=== PATIENT | male | born 1950 | race American Indian/Alaskan Native ===

== ENCOUNTER → 2016-10-12 | Outpatient (CLI) | payer MEDICAID ==
[2016-10-12 08:24] LABS: ALT 49 U/L (21-72); AST 37 U/L (17-59); Cholesterol 154 mg/dL (<200); HDL Cholesterol 38 mg/dL (40-60); Triglycerides 241 mg/dL (<150)
== END | disposition home or self-care (01) ==
LOC: LABWHC1 07:15
PROVIDERS: ATTEND Internal Medicine Interventional Cardiology
DX: E78.2 Mixed hyperlipidemia (principal)
CPT/HCPCS: 36415; 80061; 84450; 84460

== ENCOUNTER 2016-10-24 07:30 | Observation (INO) | payer MEDICAID ==
[2016-10-24] MEDS ORDERED: ASPIRIN 81 MG CHEW PO STA (07:39)
[2016-10-24] MEDS ORDERED: NITROGLYCERIN OINT 1 INCH/GM PACKET TOPICAL STA (07:39)
--- NOTE | 2016-10-24 07:43 | ED ---
General Adult HPI - General Stated complaint: chest pain Time Seen by Provider: 10/24/16 07:30 Source: RN notes reviewed - History of Present Illness Initial comments: Patient comes to the emergency department having a heart history. Patient states she's had stents placed in the past per patient comes into the emergency department today stating that he's had left arm pain intermittently. Patient states that ongoing for about 2 weeks. He says he followed up with his medical billing associate and his medical billing associate wants him to have a stress test. Patient states last night the arm pain got worse and he started to sweat so this morning he came to the emergency department. Patient denies any chest pain difficult breathing or shortness of breath. Patient denies any nausea or vomiting. Patient denies any abdominal pain. Patient denies lightheadedness dizziness or near syncopal episode. Patient denies headache patient denies numbness weakness. Patient denies any back pain. Patient denies any dysuria hematuria urinary frequency. Patient denies any fever chills or cough. - Related Data Home Medications Medication Instructions Recorded Confirmed Atorvastatin [Lipitor] 40 mg PO HS 10/06/14 10/24/16 Lisinopril [Zestril] 2.5 mg PO HS 10/06/14 10/24/16 Metoprolol Tartrate [Lopressor] 12.5 mg PO BID 10/06/14 10/24/16 Vit A,C & E/Lutein/Minerals 2 tab PO DAILY 10/06/14 10/24/16 [Ocuvite with Lutein Tablet] Aspirin EC [Ecotrin] 325 mg PO DAILY 10/24/16 10/24/16 Previous Rx's Medication Instructions Recorded Clopidogrel [Plavix] 75 mg PO DAILY tab 10/09/14 Nitroglycerin Sl Tabs [Nitrostat] 0.4 mg SUBLINGUAL Q5M PRN #0 tab 10/09/14 Allergies Allergy/AdvReac Type Severity Reaction Status Date / Time No Known Allergies Allergy Verified 10/24/16 08:56 Review of Systems ROS Statement: Those systems with pertinent positive or pertinent negative responses have been documented in the HPI. ROS Other: All systems not noted in ROS Statement are negative. Past Medical History Past Medical History: Coronary Artery Disease (CAD), Chest Pain / Angina, Hyperlipidemia, Hypertension, Myocardial Infarction ([place]) Additional Past Medical History / Comment(s): 10/06/14 Pt admitted to [facility] ER with chest heaviness starting approximately 1/2 before presentation. Pt was also mildly SOB. Other HX: [place]-lateral wall 2005, generalized DJD, ASHD Last Myocardial Infarction Date:: 2004 History of Any Multi-Drug Resistant Organisms: None Reported Past Surgical History: Heart Catheterization With Stent Additional Past Surgical History / Comment(s): 2004 ccath and stenting poximal LAD and LCX and RCA. colonoscopy Past Anesthesia/Blood Transfusion Reactions: No Reported Reaction Date of Last Stent Placement:: 2004 Past Psychological History: No Psychological Hx Reported Additional Psychological History / Comment(s): Pt resides with his . He is independent. He is still working for the [employer]. Smoking Status: Never smoker Past Alcohol Use History: None Reported Past Drug Use History: None Reported - Past Family History Father Family Medical History: Diabetes Mellitus, Hypertension Mother Family Medical History: Coronary Artery Disease (CAD), Thyroid Disorder General Exam - General Exam Comments Initial Comments: GENERAL: Patient is well-developed and well-nourished. Patient is nontoxic and well- hydrated and is in mild distress. ENT: Neck is soft and supple. No significant lymphadenopathy is noted. Oropharynx is clear. Moist mucous membranes. Neck has full range of motion without eliciting any pain. EYES: The sclera were anicteric and conjunctiva were pink and moist. Extraocular movements were intact and pupils were equal round and reactive to light. Eyelids were unremarkable. PULMONARY: Unlabored respirations. Good breath sounds bilaterally. No audible rales rhonchi or wheezing was noted. CARDIOVASCULAR: There is a regular rate and rhythm without any murmurs gallops or rubs. ABDOMEN: Soft and nontender with normal bowel sounds. No palpable organomegaly was noted. There is no palpable pulsatile mass. SKIN: Skin is clear with no lesions or rashes and otherwise unremarkable. NEUROLOGIC: Patient is alert and oriented x3. Cranial nerves II through XII are grossly intact. Motor and sensory are also intact. Normal speech, volume and content. Symmetrical smile. MUSCULOSKELETAL: Normal extremities with adequate strength and full range of motion. No lower extremity swelling or edema. No calf tenderness. LYMPHATICS: No significant lymphadenopathy is noted PSYCHIATRIC: Normal psychiatric evaluation. Normal interpersonal interactions appears functionally intact in deals appropriately with others. No signs of depression. No signs of anxiety. Course Vital Signs 10/24/16 07:42 Temperature 98.6 F Pulse Rate 59 L Respiratory 18 Rate Blood Pressure 148/82 O2 Sat by Pulse 100 Oximetry Medical Decision Making - Medical Decision Making EKG shows sinus bradycardia 55 bpm IL interval 192 QRS 106 QT interval 46 QTC is 388. Patient's EKG shows no ST segment elevation or depression or T-wave abdomen is noted Patient's chest x-ray shows no acute abnormality. Patient had increasing left arm pain associated with diaphoresis last evening and because he had a stress test scheduled I thought it best to have them come and be ruled out and then have cardiology determine whether he needs stress test earlier or not. I started the patient on heparin I continue the heparin on the floor. I spoke with Dr. Aranda he agreed to admit the patient admitted the patient I wrote admitting orders and consult cardiology. - Lab Data Result diagrams: 10/24/16 07:56 10/24/16 07:56 Lab Results 10/24/16 10/24/16 10/24/16 Range/Units 07:56 07:56 07:56 WBC 6.3 (3.8-10.6) k/uL RBC 5.31 (4.30-5.90) m/uL Hgb 15.3 (13.0-17.5) gm/dL Hct 46.6 (39.0-53.0) % MCV 87.7 (80.0-100.0) fL MCH 28.8 (25.0-35.0) pg MCHC 32.9 (31.0-37.0) g/dL RDW 13.4 (11.5-15.5) % Plt Count 202 (150-450) k/uL Neutrophils % 60 % Lymphocytes % 28 % Monocytes % 5 % Eosinophils % 3 % Basophils % 2 % Neutrophils # 3.8 (1.3-7.7) k/uL Lymphocytes # 1.8 (1.0-4.8) k/uL Monocytes # 0.3 (0-1.0) k/uL Eosinophils # 0.2 (0-0.7) k/uL Basophils # 0.1 (0-0.2) k/uL PT (9.0-12.0) sec INR (<1.1) APTT (22.0-30.0) sec Sodium 141 (137-145) mmol/L Potassium 4.4 (3.5-5.1) mmol/L Chloride 105 (98-107) mmol/L Carbon Dioxide 26 (22-30) mmol/L Anion Gap 10 mmol/L BUN 14 (9-20) mg/dL Creatinine 0.77 (0.66-1.25) mg/dL Est GFR (MDRD) Af Amer >60 (>60 ml/min/1.73 sqM) Est GFR (MDRD) Non-Af >60 (>60 ml/min/1.73 sqM) Glucose 138 H (74-99) mg/dL Calcium 8.7 (8.4-10.2) mg/dL Magnesium 1.9 (1.6-2.3) mg/dL Total Bilirubin 0.6 (0.2-1.3) mg/dL AST 36 (17-59) U/L ALT 49 (21-72) U/L Alkaline Phosphatase 58 (38-126) U/L Total Creatine Kinase 168 (55-170) U/L CK-MB (CK-2) 1.5 (0.0-2.4) ng/mL CK-MB (CK-2) Rel Index 0.9 Troponin I <0.012 (0.000-0.034) ng/mL Total Protein 7.4 (6.3-8.2) g/dL Albumin 4.2 (3.5-5.0) g/dL /10/07 Range/Units 07:56 WBC (3.8-10.6) k/uL RBC (4.30-5.90) m/uL Hgb (13.0-17.5) gm/dL Hct (39.0-53.0) % MCV (80.0-100.0) fL MCH (25.0-35.0) pg MCHC (31.0-37.0) g/dL RDW (11.5-15.5) % Plt Count (150-450) k/uL Neutrophils % % Lymphocytes % % Monocytes % % Eosinophils % % Basophils % % Neutrophils # (1.3-7.7) k/uL Lymphocytes # (1.0-4.8) k/uL Monocytes # (0-1.0) k/uL Eosinophils # (0-0.7) k/uL Basophils # (0-0.2) k/uL PT 10.7 (9.0-12.0) sec INR 1.1 (<1.1) APTT 22.4 (22.0-30.0) sec Sodium (137-145) mmol/L Potassium (3.5-5.1) mmol/L Chloride (98-107) mmol/L Carbon Dioxide (22-30) mmol/L Anion Gap mmol/L BUN (9-20) mg/dL Creatinine (0.66-1.25) mg/dL Est GFR (MDRD) Af Amer (>60 ml/min/1.73 sqM) Est GFR (MDRD) Non-Af (>60 ml/min/1.73 sqM) Glucose (74-99) mg/dL Calcium (8.4-10.2) mg/dL Magnesium (1.6-2.3) mg/dL Total Bilirubin (0.2-1.3) mg/dL AST (17-59) U/L ALT (21-72) U/L Alkaline Phosphatase (38-126) U/L Total Creatine Kinase (55-170) U/L CK-MB (CK-2) (0.0-2.4) ng/mL CK-MB (CK-2) Rel Index Troponin I (0.000-0.034) ng/mL Total Protein (6.3-8.2) g/dL Albumin (3.5-5.0) g/dL Critical Care Time Critical Care Time: Yes Total Critical Care Time: 35 Disposition Clinical Impression: Unstable angina pectoris Disposition: ADMITTED IP TO THIS [facility] Time of Disposition: 09:24
[2016-10-24 08:13] LABS: Basophils # (A) 0.1 k/uL (0-0.2); Basophils % (A) 2 %; CH 29.1; CHCM 33.3; Eosinophils # (A) 0.2 k/uL (0-0.7); Eosinophils % (A) 3 %; HCT 46.6 % (39.0-53.0); HDW 2.52; HGB 15.3 gm/dL (13.0-17.5); Luc # (Auto) 0.16; Luc % (Auto) 3; Lymphocytes # (A) 1.8 k/uL (1.0-4.8); Lymphocytes % (A) 28 %; MCH 28.8 pg (25.0-35.0); MCHC 32.9 g/dL (31.0-37.0); MCV 87.7 fL (80.0-100.0); Mean Platelet Volume 7.1; Monocytes # (A) 0.3 k/uL (0-1.0); Monocytes % (A) 5 %; Neutrophils # (A) 3.8 k/uL (1.3-7.7); Neutrophils % (A) 60 %; RBC 5.31 m/uL (4.30-5.90); RDW 13.4 % (11.5-15.5); WBC 6.3 k/uL (3.8-10.6)
[2016-10-24 08:20] LABS: INR 1.1 (<1.1); Partial Thromboplastin Time 22.4 sec (22.0-30.0); Prothrombin Time 10.7 sec (9.0-12.0)
[2016-10-24 08:22] LABS: ALT 49 U/L (21-72); AST 36 U/L (17-59); Alkaline Phosphatase 58 U/L (38-126); Anion Gap 10 mmol/L; Blood Urea Nitrogen 14 mg/dL (9-20); Calcium 8.7 mg/dL (8.4-10.2); Carbon Dioxide 26 mmol/L (22-30); Chloride 105 mmol/L (98-107); Glucose 138 mg/dL (74-99); Magnesium 1.9 mg/dL (1.6-2.3); Non-African American GFR(MDRD) >60 (>60 ml/min/1.73 sqM); Potassium 4.4 mmol/L (3.5-5.1); Sodium 141 mmol/L (137-145); Total Bilirubin 0.6 mg/dL (0.2-1.3); Total Protein 7.4 g/dL (6.3-8.2)
--- NOTE | 2016-10-24 08:35 | XR ---
EXAMINATION TYPE: XR chest 2V DATE OF EXAM: 10/24/2016 8:21 AM COMPARISON: 10/06/2014 HISTORY: Shortness of breath TECHNIQUE: Frontal and lateral views of the chest are obtained. FINDINGS: Scattered senescent parenchymal changes noted. Hyperinflation compatible with COPD. No evidence for infiltrate. No evidence for atelectasis. Heart size is stable. Mediastinal structures are stable and grossly unremarkable. No evidence for hilar prominence. Degenerative changes dorsal spine. IMPRESSION: 1. No evidence for acute pulmonary disease.
[2016-10-24 08:39] LABS: Creatine Kinase 168 U/L (55-170)
[2016-10-24 08:51] LABS: Creatine Kinase MB 1.5 ng/mL (0.0-2.4); Troponin I <0.012 ng/mL (0.000-0.034)
[2016-10-24] MEDS ORDERED: HEPARIN SODIUM,PORCINE 5,000 UNIT/ML 1 ML VIAL IV ONE (09:21)
[2016-10-24] MEDS ORDERED: NITROGLYCERIN SL TABS 0.4 MG TAB SUBLINGUAL PRN ×2 (09:25→11:02)
[2016-10-24] MEDS: HEPARIN SODIUM,PORCINE/D5W PMX 25,000 UNIT in DEXTROSE/WATER 1 500ML.BAG IV SCH (09:54)
--- NOTE | 2016-10-24 12:09 | P.CRDCN ---
History of Present Illness Consult date: 10/24/16 Chief complaint: Left arm discomfort History of present illness: This is a pleasant 66-year-old gentleman who sees Dr. Morataya as an outpatient with a known history of CAD and prior stenting of the RCA and left circumflex with the last the stent of the left circumflex was performed in September 2014 presented to the hospital complaining of left arm discomfort. The patient described nonexertional left arm discomfort without any chest discomfort. The symptoms were intermittent but yesterday the discomfort in the left arm was more pronounced and it was associated with sweating and the patient decided to come to the emergency room. The EKG showed sinus rhythm without any significant ST or T-wave abnormalities. We have only one set of cardiac enzymes came in to be unremarkable. I will follow-up with serial cardiac enzymes. We will repeat the EKG as well. Based on the results of the blood work will decide between a stress test or heart catheterization. Past Medical History Past Medical History: Coronary Artery Disease (CAD), Chest Pain / Angina, Hyperlipidemia, Hypertension, Myocardial Infarction ([place]) Additional Past Medical History / Comment(s): [place]-lateral wall 2004, L arm possible DJD. Last Myocardial Infarction Date:: 2004 History of Any Multi-Drug Resistant Organisms: None Reported Past Surgical History: Heart Catheterization With Stent Additional Past Surgical History / Comment(s): PCI with stenting poximal LAD, OM , LCX and RCA, colonoscopy Past Anesthesia/Blood Transfusion Reactions: No Reported Reaction Date of Last Stent Placement:: 10/07/14 Past Psychological History: No Psychological Hx Reported Additional Psychological History / Comment(s): Pt resides with his . He is independent. He is still working for the [employer]. Smoking Status: Never smoker Past Alcohol Use History: None Reported Past Drug Use History: None Reported - Past Family History Father Family Medical History: Diabetes Mellitus, Hypertension Mother Family Medical History: Coronary Artery Disease (CAD), Thyroid Disorder Additional Family Medical History / Comment(s): Mother in her 60's-pt unsure of cause of . Medications and Allergies Home Medications Medication Instructions Recorded Confirmed Type Atorvastatin [Lipitor] 40 mg PO HS 10/06/14 10/24/16 History Lisinopril [Zestril] 2.5 mg PO HS 10/06/14 10/24/16 History Metoprolol Tartrate [Lopressor] 12.5 mg PO BID 10/06/14 10/24/16 History Vit A,C & E/Lutein/Minerals 2 tab PO DAILY 10/06/14 10/24/16 History [Ocuvite with Lutein Tablet] Aspirin EC [Ecotrin] 325 mg PO DAILY 10/24/16 10/24/16 History Allergies Allergy/AdvReac Type Severity Reaction Status Date / Time No Known Allergies Allergy Verified 10/24/16 08:56 Physical Exam Vitals: Vital Signs Temp Pulse Pulse Resp BP BP Pulse Ox 10/24/16 10:55 98 10/24/16 10:28 97.6 F 51 L 16 136/70 99 10/24/16 10:15 97.6 F 50 L 16 138/74 99 10/24/16 09:58 98.7 F 50 L 18 138/74 99 Intake and Output 10/23/16 10/24/16 10/24/16 22:59 06:59 14:59 Other: Voiding Method Toilet # Voids 1 Weight 74.6 kg Patient Weight 10/25/16 06:59 Weight 74.6 kg - Constitutional General appearance: no acute distress - Respiratory Respiratory: bilateral: CTA - Cardiovascular Rhythm: regular Heart sounds: normal: S1, S2 Results 10/24/16 07:56 10/24/16 07:56 Current Medications Generic Name Dose Route Start Last Admin Trade Name Freq PRN Reason Stop Dose Admin Aspirin 325 mg 10/25/16 09:00 Aspirin PO DAILY [facility] Atorvastatin Calcium 40 mg 10/24/16 21:00 Lipitor PO HS [facility] Clopidogrel Bisulfate 75 mg 10/25/16 09:00 Plavix PO DAILY [facility] Heparin Sodium/Dextrose 25,000 500 mls @ 17.96 mls/hr 10/24/16 09:30 09:54 unit/ IV Solution IV 12 units/kg/hr .Q24H DEANNE 17.96 mls/hr Protocol Administration 12 UNITS/KG/HR Lisinopril 2.5 mg 10/24/16 21:00 Zestril PO HS [facility] Metoprolol Tartrate 12.5 mg 10/24/16 21:00 Lopressor PO BID [facility] Nitroglycerin 1 inch 10/24/16 12:00 Nitro-Bid Oint TOPICAL Q6HR [facility] Nitroglycerin 0.4 mg 10/24/16 11:02 Nitrostat SUBLINGUAL Q5M PRN Chest Pain Intake and Output 10/23/16 10/24/16 10/24/16 22:59 06:59 14:59 Other: Voiding Method Toilet # Voids 1 Weight 74.6 kg Patient Weight 10/25/16 06:59 Weight 74.6 kg Assessment and Plan Plan: Assessment #1 left arm discomfort in this 66-year-old gentleman was known CAD and prior stenting as described above Plan Awaiting for the result of serial cardiac enzymes. Repeat the EKG. Further recommendation to follow.
[2016-10-24 14:01] LABS: Creatine Kinase 156 U/L (55-170)
[2016-10-24 14:12] LABS: Creatine Kinase MB 1.5 ng/mL (0.0-2.4); Troponin I <0.012 ng/mL (0.000-0.034)
[2016-10-24] MEDS: NITROGLYCERIN OINT 1 INCH/GM PACKET TOPICAL SCH ×3 (17:06→22:56)
--- NOTE | 2016-10-24 19:32 | HP ---
DATE OF ADMISSION: Patient is a pleasant 66-year-old gentleman who came in with complaints of pain in the left arm which he felt was musculoskeletal secondary to his sleeping position. Patient has seen ( ) as an outpatient and someone ordered an outpatient stress test on Friday. Patient today comes in because today earlier morning the pain worsened, with some sweating in his hands, which probably he believes is secondary to anxiety from his left arm pain. Pain is different from his myocardial infarction pain. Patient denied any fever, chills, lightheadedness, shortness of breath. Patient's pain is non-pleuritic; actually it is not a chest pain, not associated with food. Patient does not have any acute ST-T wave changes. Patient has mild sinus bradycardia. Patient's genetic origin is [place], which puts him at higher risk for myocardial infarction. Past medical history is significant for: 1. Coronary artery disease. 2. Hyperlipidemia. 3. Hypertension. 4. Myocardial infarction in the past with previous stents in the past. 5. Degenerative joint disease. 6. Cardiac catheterization and stent placement in LAD, obtuse marginal, left circumflex and RCA. 7. Colonoscopies in the past. SOCIAL HISTORY: Denied any smoking, alcohol abuse or any drug abuse. FAMILY HISTORY: Significant for diabetes mellitus, hypertension. Father and mother had coronary artery disease and hypothyroidism. Mother at age 60; unsure of the cause. Home medications include: 1. Atorvastatin. 2. Lisinopril. 3. Metoprolol. 4. Aspirin. ALLERGIES: NO KNOWN DRUG ALLERGIES. PHYSICAL EXAMINATION: Temperature 98.0, pulse of 50, respiratory rate of 18, blood pressure 138/74. Saturating at 98% on room air. GENERAL: The patient is alert and oriented x3, not in any acute distress. Well developed, well nourished. HEENT: Pupils are round and equally reacting to light. EOMI. No scleral icterus. No conjunctival pallor. Normocephalic, atraumatic. No pharyngeal erythema. No thyromegaly. CARDIOVASCULAR: S1 and S2 present. No murmurs, rubs, or gallops. PULMONARY: Chest is clear to auscultation, no wheezing or crackles. ABDOMEN: Soft, nontender, nondistended, normoactive bowel sounds. No palpable organomegaly. MUSCULOSKELETAL: No joint swelling or deformity. EXTREMITIES: No cyanosis, clubbing, or pedal edema. NEUROLOGICAL: Gross neurological examination did not reveal any focal deficits. SKIN: No rashes. LABORATORY DATA: CBC, CMP essentially within normal limits. Two sets of troponins are negative. ASSESSMENT AND PLAN: 1. Left arm discomfort. Rule out acute coronary syndromes. Patient is definitely high risk, because of which patient may need a stress test. Cardiology will evaluate the patient. 2. Hyperlipidemia. 3. Hypertension, for which I will go ahead and continue his home medications. Will rule out acute coronary artery syndromes and unstable angina.
[2016-10-24] MEDS: METOPROLOL TARTRATE 12.5 MG TAB PO SCH (20:35)
[2016-10-24 20:51] LABS: Creatine Kinase 144 U/L (55-170)
[2016-10-24] MEDS ORDERED: ATORVASTATIN 40 MG TAB PO SCH (21:00)
[2016-10-24] MEDS ORDERED: LISINOPRIL 2.5 MG TAB PO SCH (21:00)
[2016-10-24 21:03] LABS: Creatine Kinase MB 1.1 ng/mL (0.0-2.4); Troponin I <0.012 ng/mL (0.000-0.034)
[2016-10-25] MEDS: NITROGLYCERIN OINT 1 INCH/GM PACKET TOPICAL SCH ×2 (04:55→12:22)
[2016-10-25 07:37] LABS: Cholesterol 122 mg/dL (<200); HDL Cholesterol 41 mg/dL (40-60); Triglycerides 120 mg/dL (<150)
[2016-10-25] MEDS ORDERED: REGADENOSON 0.4 MG/5 ML SYRINGE IV ONE (07:38)
[2016-10-25] MEDS ORDERED: AMINOPHYLLINE 500 MG/20 ML VIAL IV PRN (07:38)
--- NOTE | 2016-10-25 07:52 | P.PN ---
Progress Note - Text This is a pleasant 66-year-old gentleman who sees Dr. Morataya as an outpatient with a known history of CAD and prior stenting of the RCA and left circumflex with the last the stent of the left circumflex was performed in September 2014 presented to the hospital complaining of left arm discomfort. The patient described nonexertional left arm discomfort without any chest discomfort. The symptoms were intermittent but yesterday the discomfort in the left arm was more pronounced and it was associated with sweating and the patient decided to come to the emergency room. The EKG showed sinus rhythm without any significant ST or T-wave abnormalities. The patient underwent serial cardiac enzymes and came in to be unremarkable. I'll proceed with a stress test.
[2016-10-25] MEDS ORDERED: ASPIRIN 325 MG TAB PO SCH (09:00)
[2016-10-25] MEDS ORDERED: CLOPIDOGREL 75 MG TAB PO SCH (09:00)
--- NOTE | 2016-10-25 11:52 | EST ---
DATE OF SERVICE: 10/25/2016 AGE: 66Y SEX: M HT: 68" WT: 164 lbs. Lexiscan Cardiolite Stress Test *Heart Rate Blood Pressure *Rest: 52 Rest: 150/84 * *Max. Achieved: 87 Maximum BP: 150/84 85% PMHR: 132 100% PMHR: 155 *METS: - INDICATIONS: Chest pain. MEDICATIONS: - Baseline EKG revealed a sinus mechanism with sinus bradycardia. With Lexiscan administration, heart rate changed from 52 to 87 beats per minute and blood pressure changed from 150/84 to 116/61 and then came back to baseline. EKG did not reveal any ST segment changes to indicate ischemia and patient did not have any angina. By EKG criteria, this is an unremarkable Lexiscan stress test. The nuclear scan results, which are more pertinent, will be reported by the radiologist.
[2016-10-25 12:14] VITALS: BP 121/65; PULSE 68; RESP 18; TEMP 97.8
[2016-10-25] MEDS: HEPARIN SODIUM,PORCINE/D5W PMX 25,000 UNIT in DEXTROSE/WATER 1 500ML.BAG IV SCH (12:20)
[2016-10-25] MEDS: METOPROLOL TARTRATE 12.5 MG TAB PO SCH (12:23)
--- NOTE | 2016-10-25 12:29 | NM ---
EXAMINATION TYPE: NM stress jessica can cardiolite DATE OF EXAM: 10/25/2016 12:09 PM COMPARISON: NONE HISTORY: Chest pain TECHNIQUE: After the intravenous administration of 9.9 mCi Tc 99m Sestamibi - Cardiolite resting SPE CT images acquired 100 minutes post injection. The patient received 0.4mg Lexiscan, 25.5 mCi Tc 99m Sestamibi - Stress images obtained [address] injection FINDINGS: There is relatively poor uptake of radiopharmaceutical by the left ventricle. There is no d efinite fixed defect. There is no convincing inducible ischemic change. The computer mild suggests so me inducible ischemic change in the lateral wall of the left ventricle but this is not apparent in th e images themselves. There is global hypokinesia of the left ventricle with an ejection fraction of 4 5%. IMPRESSION: SOMEWHAT AMBIGUOUS EXAMINATION WITHOUT DEFINITE EVIDENCE OF INDUCIBLE ISCHEMIC CHANGE THIS TIME. THER E IS MILD, GLOBAL HYPOKINESIA OF THE LEFT VENTRICLE.
--- NOTE | 2016-10-25 12:53 | DS ---
DATE OF ADMISSION: 10/24/2016 DATE OF DISCHARGE: A 66-year-old admitted with chest pain, appeared to be atypical. Patient underwent stress test which was equivocal. If cleared by Cardiology, patient will be discharged to follow with his guide travel, Dr. Morataya. His EF is 45%. Patient is already on lisinopril, not in any acute exacerbation. Patient wanted to be discharged. Patient was seen and examined on the day of discharge. Vitals are stable. PHYSICAL EXAMINATION: GENERAL: The patient is alert and oriented x3, not in any acute distress. Well developed, well nourished. HEENT: Pupils are round and equally reacting to light. EOMI. No scleral icterus. No conjunctival pallor. Normocephalic, atraumatic. No pharyngeal erythema. No thyromegaly. CARDIOVASCULAR: S1 and S2 present. No murmurs, rubs, or gallops. PULMONARY: Chest is clear to auscultation, no wheezing or crackles. ABDOMEN: Soft, nontender, nondistended, normoactive bowel sounds. No palpable organomegaly. MUSCULOSKELETAL: No joint swelling or deformity. EXTREMITIES: No cyanosis, clubbing, or pedal edema. NEUROLOGICAL: Gross neurological examination did not reveal any focal deficits. SKIN: No rashes. ASSESSMENT AND PLAN: 1. Left arm discomfort, atypical in nature. Equivocal stress test. Clearance as per Cardiology. If cleared by Cardiology, patient will be discharged. 2. Hyperlipidemia. 3. Hypertension. 4. Chronic systolic dysfunction; ejection fraction of 45%, not in acute exacerbation. Please refer to my depart summary for the list of discharge medication. Patient will follow with Dr. Hernandez in 3 to [address] Morataya in about a week. Activity as tolerated. Cardiac diet. CHF discharge instructions will be provided.
--- NOTE | 2016-10-26 12:30 | ECHOF ---
Referral Reason:chest pain MEASUREMENTS -------- HEIGHT: 172.7 cm WEIGHT: 74.4 kg BP: 122/68 RVIDd: 2.7 cm (< 3.3) IVSd: 1.0 cm (0.6 - 1.1) LVIDd: 4.8 cm (3.9 - 5.3) LVPWd: 1.0 cm (0.6 - 1.1) IVSs: 1.7 cm LVIDs: 3.1 cm LVPWs: 1.1 cm LAESV Index (A-L): 14.60 ml/m Ao Diam: 3.4 cm (2.0 - 3.7) AV Cusp: 1.7 cm (1.5 - 2.6) LA Diam: 3.2 cm (2.7 - 3.8) MV EXCURSION: 14.100 mm (> 18.000) MV EF SLOPE: 68 mm/s (70 - 150) EPSS: 0.8 cm MV E Jovany: 0.86 m/s MV DecT: 226 ms MV A Jovany: 0.99 m/s MV E/A Ratio: 0.87 RAP: 5.00 mmHg RVSP: 24.71 mmHg FINDINGS -------- Sinus rhythm. This was a technically good study. Left ventricular wall thickness is normal. Overall left ventricular systolic function is normal with, an EF between 60 - 65 %. The right ventricle is normal in size and function. Normal LA size by volume 22+/-6 ml/m2. The right atrium is normal in size. Aortic valve is trileaflet and is mildly thickened. There is no evidence of aortic regurgitation. There is no evidence of aortic stenosis. The mitral valve leaflets are mildly thickened. Mild mitral annular calcification present. There is trace mitral regurgitation. Trace tricuspid regurgitation present. There is no evidence of pulmonary hypertension. The right ventricular systolic pressure, as measured by Doppler, is 24.71mmHg. The pulmonic valve is normal. The aortic root size is normal. There is no pericardial effusion. CONCLUSIONS -------- 1. Sinus rhythm. 2. The aortic root size is normal. 3. There is no pericardial effusion. 4. Overall left ventricular systolic function is normal with, an EF between 60 - 65 %. 5. Aortic valve is trileaflet and is mildly thickened. 6. The mitral valve leaflets are mildly thickened. 7. Mild mitral annular calcification present. 8. There is trace mitral regurgitation. 9. Trace tricuspid regurgitation present. 10. There is no evidence of pulmonary hypertension. 11. The right ventricular systolic pressure, as measured by Doppler, is 24.71mmHg. FRAME OPENER: Ally Sullivan RDCS
== END 2016-10-25 14:28 | disposition home or self-care (01) ==
LOC: EC 07:30 → 3OBS 09:26
PROVIDERS: ADMIT Internal Medicine; ATTEND Internal Medicine
DX: R07.89 Other chest pain (principal); I25.10 Atherosclerotic heart disease of native coronary artery without angina pectoris; M79.602 Pain in left arm; E78.5 Hyperlipidemia, unspecified; I11.0 Hypertensive heart disease with heart failure; I50.9 Heart failure, unspecified; I25.2 Old myocardial infarction; M19.90 Unspecified osteoarthritis, unspecified site; Z79.02 Long term (current) use of antithrombotics/antiplatelets; Z79.899 Other long term (current) drug therapy; Z83.3 Family history of diabetes mellitus; Z95.5 Presence of coronary angioplasty implant and graft; Z82.49 Family history of ischemic heart disease and other diseases of the circulatory system; Z79.82 Long term (current) use of aspirin
CPT/HCPCS: 96376 ×2; 96365 ×2; 99291 ×2; 36415; 93005; 93017; 93306; 80061; 80053; 82550; 82553; 83735; 84484; 85025; 85610; 85730 ×2; 71020; 78452; G0378 ×2; A9500; J1644 ×2; J2785

== ENCOUNTER → 2017-01-23 | Outpatient (CLI) | payer MEDICAID ==
[2017-01-23 16:52] LABS: CH 29.6; CHCM 33.2; HCT 46.1 % (39.0-53.0); HDW 2.38; HGB 15.3 gm/dL (13.0-17.5); MCH 29.8 pg (25.0-35.0); MCHC 33.2 g/dL (31.0-37.0); MCV 89.5 fL (80.0-100.0); Mean Platelet Volume 7.5; RBC 5.15 m/uL (4.30-5.90); WBC 6.7 k/uL (3.8-10.6)
== END | disposition home or self-care (01) ==
LOC: LABWHC1 16:24
PROVIDERS: ATTEND Internal Medicine
DX: R50.9 Fever, unspecified (principal)
CPT/HCPCS: 36415; 85027

== ENCOUNTER → 2017-08-09 | Outpatient (CLI) | payer MEDICAID ==
[2017-08-09 09:57] LABS: ALT 41 U/L (21-72); AST 29 U/L (17-59); Albumin 4.4 g/dL (3.5-5.0); Alkaline Phosphatase 58 U/L (38-126); Anion Gap 11 mmol/L; Bilirubin, Delta 0.2 mg/dL (0.0-0.2); Bilirubin,Unconjugated 0.1 mg/dL (0.0-1.1); Blood Urea Nitrogen 16 mg/dL (9-20); Carbon Dioxide 30 mmol/L (22-30); Chloride 100 mmol/L (98-107); Cholesterol 174 mg/dL (<200); Glucose 91 mg/dL (74-99); HDL Cholesterol 50 mg/dL (40-60); LDL Cholesterol,Calculated 86 mg/dL (0-99); Potassium 4.1 mmol/L (3.5-5.1); Sodium 141 mmol/L (137-145); Total Bilirubin 0.3 mg/dL (0.2-1.3); Total Protein 7.6 g/dL (6.3-8.2); Triglycerides 192 mg/dL (<150)
[2017-08-09 10:28] LABS: Prostate Specific Antigen 0.77 ng/mL (0.00-4.00)
== END | disposition home or self-care (01) ==
LOC: LABWHC1 07:16
PROVIDERS: ATTEND Internal Medicine
DX: I10 Essential (primary) hypertension (principal); E78.5 Hyperlipidemia, unspecified; Z12.5 Encounter for screening for malignant neoplasm of prostate
CPT/HCPCS: 36415; 80051; 80061; 80076; 82565; 82947; 84153; 84443; 84520

== ENCOUNTER 2017-09-29 11:51 | Day surgery (SDC) | payer MEDICAID ==
[2017-09-29] MEDS ORDERED: LACTATED RINGERS 1,000 ML IV SCH (12:06)
[2017-09-29 12:18] VITALS: TEMP 97
[2017-09-29] MEDS ORDERED: LIDOCAINE 1% INJ 10MG/ML (20 ML MDV) ONE (13:01)
[2017-09-29] MEDS ORDERED: PROPOFOL 10 MG/ML 20 ML VIAL IV ONE (13:01)
[2017-09-29 13:26] VITALS: RESP 16
--- NOTE | 2017-09-29 13:28 | P.PCN ---
Date of Procedure: 09/29/17 Procedure(s) Performed: Procedure: Colonoscopy and polypectomy. Preoperative diagnosis: Screening for neoplasia. Postoperative diagnosis: 2 Small polyps in the cecum and distal sigmoid snared but no large polyps or cancer. Preparation: HalfLytely prep. Sedation: Was provided by anesthesia. Brief clinical history: The patient is a 67-year-old male who is scheduled for this evaluation for screening for neoplasia age being his risk factor. He has no abdominal complaints, bleeding or anemia. His prior exam was around 7- 10 years ago. Procedure: With the patient on his left lateral decubitus position and after informed consent and adequate sedation, the perianal area was inspected and it did not show any fissures or fistulas. There were no masses felt on digital rectal examination. The Olympus CFQ 160L video colonoscope was then inserted in the rectum in the usual fashion and advanced to the cecum. There was a small polyp in the cecum and one in the distal sigmoid which were snared and retrieved by suction, but there were no large polyps or cancer. No obvious diverticular disease or other pathology. I retroflexed the endoscope in the rectum before the endoscope was withdrawn. The patient tolerated the procedure well. Plan: The patient was reassured. Will await pathology results. I anticipate repeating this exam in around 5 years. He will follow up with you as planned.
[2017-09-29 13:52] VITALS: PULSE 55
[2017-09-29 14:04] VITALS: BP 131/79
== END 2017-09-29 14:42 | disposition home or self-care (01) ==
LOC: ORWHC2ENDO 11:51
DX: Z12.11 Encounter for screening for malignant neoplasm of colon (principal); K63.5 Polyp of colon; I25.10 Atherosclerotic heart disease of native coronary artery without angina pectoris; I10 Essential (primary) hypertension; E78.5 Hyperlipidemia, unspecified; M19.90 Unspecified osteoarthritis, unspecified site; I25.2 Old myocardial infarction; Z79.02 Long term (current) use of antithrombotics/antiplatelets; Z79.899 Other long term (current) drug therapy
CPT/HCPCS: 88305; 45385; J2001; J2704

== ENCOUNTER → 2018-01-31 | Outpatient (CLI) | payer MEDICAID ==
[2018-01-31 08:36] LABS: ALT 57 U/L (21-72); AST 37 U/L (17-59); Cholesterol 157 mg/dL (<200); HDL Cholesterol 40 mg/dL (40-60); LDL Cholesterol,Calculated 82 mg/dL (0-99); Triglycerides 176 mg/dL (<150)
== END | disposition home or self-care (01) ==
LOC: LABWHC1 08:08
PROVIDERS: ATTEND Internal Medicine Interventional Cardiology
DX: E78.2 Mixed hyperlipidemia (principal)
CPT/HCPCS: 36415; 80061; 84450; 84460

== ENCOUNTER → 2018-08-15 | Outpatient (CLI) | payer MEDICAID ==
[2018-08-15 17:12] LABS: Albumin 4.5 g/dL (3.80-4.90); Albumin/Globulin Ratio 1.88 (1.60-3.17); Anion Gap 8.6 mmol/L (4.00-12.00); Calcium 9.2 mg/dL (8.7-10.3); Carbon Dioxide 27.4 mmol/L (21.6-31.8); Globulin 2.4 g/dL (1.6-3.3); LDL Cholesterol,Calculated 78.2 mg/dL (0.0-131.0); Potassium 4.2 mmol/L (3.5-5.5); Total Bilirubin 0.8 mg/dL (0.2-1.2); Total Protein 6.9 g/dL (6.2-8.2); VLDL Calculation 31.8 mg/dL (5.00-40.00)
== END | disposition home or self-care (01) ==
LOC: LABWHC1 08:55
PROVIDERS: ATTEND Internal Medicine Interventional Cardiology
DX: E78.2 Mixed hyperlipidemia (principal)
CPT/HCPCS: 36415; 80053; 80061

== ENCOUNTER → 2018-12-12 | Outpatient (CLI) | payer MEDICAID ==
[2018-12-12 16:02] LABS: Albumin 4.3 g/dL (3.80-4.90); Albumin/Globulin Ratio 1.72 (1.60-3.17); Bilirubin, Conjugated 0.2 mg/dL (0.20-0.40); Bilirubin,Unconjugated 0.4 mg/dL; Globulin 2.5 g/dL (1.6-3.3); Total Bilirubin 0.6 mg/dL (0.2-1.2); Total Protein 6.8 g/dL (6.2-8.2)
[2018-12-12 17:21] LABS: Hepatitis A Antibody IgM Non-Reactive (Non-Reactive); Hepatitis B Core IgM Non-Reactive (Non-Reactive)
== END | disposition home or self-care (01) ==
LOC: LABWHC1 08:04
PROVIDERS: ATTEND Internal Medicine
DX: R79.89 Other specified abnormal findings of blood chemistry (principal); Z12.5 Encounter for screening for malignant neoplasm of prostate
CPT/HCPCS: 36415; 80074; 80076; 84153

== ENCOUNTER → 2018-12-28 | Outpatient (CLI) | payer MEDICAID ==
--- NOTE | 2018-12-28 16:32 | US ---
EXAMINATION TYPE: US liver DATE OF EXAM: 12/28/2018 COMPARISON: NONE CLINICAL HISTORY: 68-year-old male R94.5 Elevated LFT's. TECHNIQUE: Multiple sonographic images of the right upper quadrant are obtained. FINDINGS: EXAM MEASUREMENTS: Liver Length: 13.4 cm Gallbladder Wall: 0.1 cm CBD: 6 mm Right Kidney: 12.0 x 5.7 x 4.9 cm Pancreas: Obscured by bowel gas Liver: Very slight increased attenuation Gallbladder: wnl Evidence for sonographic Grey's sign: No CBD: wnl Right Kidney: No hydronephrosis IMPRESSION: Slight increased echogenicity of the liver could reflect mild fatty infiltration. Bile duct caliber o f 6 mm is within normal limits for patient's age. No cholelithiasis.
== END | disposition home or self-care (01) ==
LOC: RADUSWWP 13:22
PROVIDERS: ATTEND Internal Medicine
DX: R93.2 Abnormal findings on diagnostic imaging of liver and biliary tract (principal); R94.5 Abnormal results of liver function studies
CPT/HCPCS: 76705

== ENCOUNTER → 2019-02-27 | Outpatient (CLI) | payer MEDICAID ==
[2019-02-27 16:14] LABS: Chol/HDL Ratio 3.83
== END | disposition home or self-care (01) ==
LOC: LABWHC1 08:02
PROVIDERS: ATTEND Internal Medicine Interventional Cardiology
DX: E78.2 Mixed hyperlipidemia (principal)
CPT/HCPCS: 36415; 80061; 84450; 84460

== ENCOUNTER → 2019-05-21 | Outpatient (CLI) | payer MEDICAID ==
--- NOTE | 2019-05-21 20:59 | CT ---
EXAMINATION TYPE: CT iac w con DATE OF EXAM: 05/21/2019 COMPARISON: NONE HISTORY: Right-sided hearing loss, right-sided tympanic membrane perforation. Tinnitus, mastoiditis. CT DLP: 150 mGycm. Automated Exposure Control for Dose Reduction was Utilized. TECHNIQUE: CT scan of internal auditory canal is performed with IV contrast, thin cut axial images ar e obtained, coronal reformatted images are also reviewed. Patient injected with 80 cc of Isovue 300. FINDINGS: The external auditory canals are patent bilaterally. Mild peripheral and deep soft tissue b ilaterally is consistent with cerumen. Mastoid air cells show no evidence of abnormal opacification bilaterally. The middle ear ossicles are symmetric and unremarkable. There is no evidence of suspic ious surrounding soft tissue density to suggest cholesteatoma. The scutum is preserved bilaterally. The cochlea and the semicircular canals are symmetric and unremarkable. Vestibular aqueduct and int ernal carotid canal appear unremarkable. Temporomandibular joints are maintained bilaterally. Visualized paranasal sinuses show mild mucosal thickening left maxillary sinus inferiorly with small mucous retention cysts or polyps noted bilatera lly. Cysts or. Visualized portion brain parenchyma is felt within normal limits. No abnormal enhancem ent. Dominant left vertebral artery incidentally noted. IMPRESSION: No significant abnormality seen to account for patient's symptoms of right-sided hearing loss and tinnitus.
== END | disposition home or self-care (01) ==
LOC: RADCTMAIN 16:28
PROVIDERS: ATTEND Otolaryngology
DX: H91.91 Unspecified hearing loss, right ear (principal); H93.11 Tinnitus, right ear; H71.91 Unspecified cholesteatoma, right ear; H70.91 Unspecified mastoiditis, right ear; H74.92 Unspecified disorder of left middle ear and mastoid
CPT/HCPCS: 82565; 84520; 70481; 36415; Q9967

== ENCOUNTER → 2019-09-06 | Outpatient (CLI) | payer MEDICAID | END | disposition home or self-care (01) | DX: E78.2 Mixed hyperlipidemia (principal) | CPT/HCPCS: 36415; 80053; 80061 ==

== ENCOUNTER → 2020-04-05 | Outpatient (CLI) | payer MEDICAID ==
[2020-04-05 17:52] LABS: African American GFR (CKD) 89.2 (60.0-200.0); Anion Gap 10.1 mmol/L (4.00-12.00); Calcium 8.6 mg/dL (8.7-10.3); Carbon Dioxide 25.9 mmol/L (21.6-31.8); Chol/HDL Ratio 4.14; LDL Cholesterol,Calculated 80.4 mg/dL (0.0-131.0); Potassium 4.5 mmol/L (3.5-5.5); VLDL Calculation 32.6 mg/dL (5.00-40.00)
== END | disposition home or self-care (01) ==
LOC: LABWHC1 07:23
PROVIDERS: ATTEND Nurse Practitioner Adult Health
DX: E78.2 Mixed hyperlipidemia (principal)
CPT/HCPCS: 36415; 80048; 80061; 84450; 84460

== ENCOUNTER 2020-10-06 11:05 | Emergency (ER) | payer MEDICAID ==
[2020-10-06 11:14] VITALS: TEMP 97.6
[2020-10-06] MEDS ORDERED: SODIUM CHLORIDE 0.9% 1,000 ML IV STA (11:37)
[2020-10-06] MEDS ORDERED: MECLIZINE 12.5 MG TAB PO STA (11:37)
[2020-10-06 12:50] LABS: Amorphous Sediment,Urine Occasional /hpf; Appearance,Urine Cloudy (Clear); Bilirubin,Urine Negative (Negative); Blood,Urine Negative (Negative); Color,Urine Light Yellow; Glucose,Urine (UA) Negative (Negative); Ketones,Urine Negative (Negative); Leukocyte Esterase,Urine Negative (Negative); Nitrite,Urine Negative (Negative); PH, Urine 7.5 (5.0-8.0); Protein,Urine Negative (Negative); RBC,Urine 1 /hpf (0-5); Specific Gravity,Urine 1.001 (1.001-1.035); Urobilinogen,Urine <2.0 mg/dL (<2.0)
[2020-10-06 13:08] LABS: Basophils # (A) 0.1 k/uL (0-0.2); Basophils % (A) 1 %; Eosinophils # (A) 0.2 k/uL (0-0.7); Eosinophils % (A) 1 %; HCT 46.4 % (39.0-53.0); HGB 15.9 gm/dL (13.0-17.5); Lymphocytes # (A) 1.9 k/uL (1.0-4.8); Lymphocytes % (A) 17 %; MCHC 34.3 g/dL (31.0-37.0); MCV 87.5 fL (80.0-100.0); Mean Platelet Volume 7.2; Monocytes # (A) 0.5 k/uL (0-1.0); Monocytes % (A) 4 %; Neutrophils # (A) 8.9 k/uL (1.3-7.7); Neutrophils % (A) 77 %; Platelet Count 252 k/uL (150-450); RDW 12.5 % (11.5-15.5); WBC 11.6 k/uL (3.8-10.6)
[2020-10-06 13:22] LABS: ALT 44 U/L (4-49); AST 46 U/L (17-59); African American GFR (CKD) >90 (>60 ml/min/1.73 sqM); Albumin 4.6 g/dL (3.5-5.0); Alkaline Phosphatase 51 U/L (38-126); Anion Gap 9 mmol/L; Blood Urea Nitrogen 13 mg/dL (9-20); Calcium 8.5 mg/dL (8.4-10.2); Carbon Dioxide 22 mmol/L (22-30); Chloride 102 mmol/L (98-107); Glucose 87 mg/dL (74-99); Non-African American GFR(CKD) >90 (>60 ml/min/1.73 sqM); Sodium 133 mmol/L (137-145); Total Protein 8.1 g/dL (6.3-8.2)
[2020-10-06 13:30] LABS: Potassium 5.6 mmol/L (3.5-5.1)
[2020-10-06 13:53] LABS: Prothrombin Time 10.9 sec (9.0-12.0)
[2020-10-06 13:56] LABS: Partial Thromboplastin Time 21.8 sec (22.0-30.0)
--- NOTE | 2020-10-06 14:07 | ED ---
General Adult HPI - General Chief complaint: Dizziness Stated complaint: Dizziness Time Seen by Provider: 10/06/20 11:20 Source: patient, EMS Mode of arrival: EMS Limitations: no limitations - History of Present Illness Initial comments: 70-year-old male patient with past medical history significant for coronary artery disease, CT with stenting of the proximal LAD, hyperlipidemia, hypertension presents to the emergency department today for evaluation of dizziness. Patient states he woke up with this this morning. Denies any blurred or double vision. Denies headache. States the dizziness does worsen when he sits up or stands up. Denies any chest pain or shortness of breath. Denies numbness, tingling, weakness to his extremities. Denies any recent head injury. Denies starting new medications. Denies any nasal congestion or drainage. Denies ear pain. Patient denies any recent rash, fever, chills, cough, abdominal pain, nausea, vomiting, diarrhea, constipation, back pain, hematuria, dysuria, urinary urgency, urinary frequency, or any other complaints. - Related Data Home Medications Medication Instructions Recorded Confirmed Atorvastatin [Lipitor] 40 mg PO HS 10/06/14 10/06/20 Metoprolol Tartrate [Lopressor] 12.5 mg PO BID 10/06/14 10/06/20 Vits A,C,E/Lutein/Minerals 2 tab PO DAILY 10/06/14 10/06/20 [Ocuvite with Lutein Tablet] lisinopriL [Zestril] 2.5 mg PO HS 10/06/14 10/06/20 Aspirin EC [Ecotrin Low Dose] 81 mg PO DAILY 10/06/20 10/06/20 Azithromycin [Zithromax Z-pack (6 See Taper PO DAILY 10/06/20 10/06/20 tabs)] Clotrimazole Cream [Lotrimin Cream] 1 applic TOPICAL BID 10/06/20 10/06/20 Previous Rx's Medication Instructions Recorded Nitroglycerin Sl Tabs [Nitrostat] 0.4 mg SUBLINGUAL Q5M PRN #0 tab 10/09/14 Meclizine [Antivert] 25 mg PO TID #15 tab 10/06/20 Allergies Allergy/AdvReac Type Severity Reaction Status Date / Time No Known Allergies Allergy Verified 10/06/20 13:33 Review of Systems ROS Statement: Those systems with pertinent positive or pertinent negative responses have been documented in the HPI. ROS Other: All systems not noted in ROS Statement are negative. Past Medical History Past Medical History: Coronary Artery Disease (CAD), Chest Pain / Angina, Hyper lipidemia, Hypertension, Myocardial Infarction (CT) Additional Past Medical History / Comment(s): CT-lateral wall 2004, L arm possible DJD. Last Myocardial Infarction Date:: 2004 History of Any Multi-Drug Resistant Organisms: None Reported Past Surgical History: Heart Catheterization With Stent Additional Past Surgical History / Comment(s): PCI with stenting poximal LAD, O M, LCX and RCA, colonoscopy Past Anesthesia/Blood Transfusion Reactions: No Reported Reaction Date of Last Stent Placement:: 10/07/14 Past Psychological History: No Psychological Hx Reported Smoking Status: Never smoker Past Alcohol Use History: None Reported Past Drug Use History: None Reported - Past Family History Father Family Medical History: Diabetes Mellitus, Hypertension Mother Family Medical History: Coronary Artery Disease (CAD), Thyroid Disorder Additional Family Medical History / Comment(s): Mother in her 60's-pt u nsure of cause of . General Exam Limitations: no limitations General appearance: alert, in no apparent distress, other (This is a well- developed, well-nourished adult male patient in no acute distress. Vital signs upon presentation are temperature 97.6F, pulse 65, respirations 18, blood pressure 160/82, pulse ox 100% on room air.) Eye exam: Present: normal appearance, PERRL, EOMI. Absent: scleral icterus, conjunctival injection, periorbital swelling ENT exam: Present: normal exam, normal oropharynx, mucous membranes moist Respiratory exam: Present: normal lung sounds bilaterally. Absent: respiratory distress, wheezes, rales, rhonchi, stridor Cardiovascular Exam: Present: regular rate, normal rhythm, normal heart sounds. Absent: systolic murmur, diastolic murmur, rubs, gallop, clicks GI/Abdominal exam: Present: soft, normal bowel sounds. Absent: distended, tenderness, guarding, rebound, rigid Neurological exam: Present: alert, oriented X3, CN II-XII intact Expanded Speech: Present: fluid speech Cranial nerves: EOM's Intact: Normal, Nystagmus: Normal Cerebellar function: Finger to Nose: Normal Motor strength exam: RUE: 5, LUE: 5, RLE: 5, LLE: 5 Psychiatric exam: Present: normal affect, normal mood Skin exam: Present: warm, dry, intact, normal color. Absent: rash Course Vital Signs 10/06/20 11:07 Temperature 97.6 F Pulse Rate 65 Respiratory 18 Rate Blood Pressure 160/82 O2 Sat by Pulse 100 Oximetry EKG Findings - EKG Comments: EKG Findings:: UG obtained at 1204 shows normal sinus rhythm with a ventricular rate of 61, TX interval 202, QRS duration 108, QT 432, QTc 434. No evidence of ST elevation or depression. Medical Decision Making - Medical Decision Making 70-year-old male patient presents to the emergency department today for evaluation of dizziness. Physical examination is unremarkable. He is neur ologically intact with no focal deficits. Labs reviewed and are unremarkable. EKG is unremarkable. He was given dose of meclizine here. Upon reevaluation he states he is feeling better. Was able to upon add to the bed and stand up without any dizziness. He will be discharged home with a prescription for meclizine. Is instructed to follow-up with his primary care physician for recheck in 1-2 days. Discussed in detail. He verbalizes understanding and agrees with this plan. Case discussed with my attending Dr. Atkinson. - Lab Data Result diagrams: 10/06/20 12:39 10/06/20 12:39 Lab Results 10/06/20 10/06/20 10/06/20 Range/Units 12:24 12:39 12:39 WBC 11.6 H (3.8-10.6) k/uL RBC 5.30 (4.30-5.90) m/uL Hgb 15.9 (13.0-17.5) gm/dL Hct 46.4 (39.0-53.0) % MCV 87.5 (80.0-100.0) fL MCH 30.0 (25.0-35.0) pg MCHC 34.3 (31.0-37.0) g/dL RDW 12.5 (11.5-15.5) % Plt Count 252 (150-450) k/uL MPV 7.2 Neutrophils % 77 % Lymphocytes % 17 % Monocytes % 4 % Eosinophils % 1 % Basophils % 1 % Neutrophils # 8.9 H (1.3-7.7) k/uL Lymphocytes # 1.9 (1.0-4.8) k/uL Monocytes # 0.5 (0-1.0) k/uL Eosinophils # 0.2 (0-0.7) k/uL Basophils # 0.1 (0-0.2) k/uL PT (9.0-12.0) sec INR (<1.2) APTT (22.0-30.0) sec Sodium 133 L (137-145) mmol/L Potassium 5.6 H (3.5-5.1) mmol/L Chloride 102 (98-107) mmol/L Carbon Dioxide 22 (22-30) mmol/L Anion Gap 9 mmol/L BUN 13 (9-20) mg/dL Creatinine 0.82 (0.66-1.25) mg/dL Est GFR (CKD-EPI)AfAm >90 (>60 ml/min/1.73 sqM) Est GFR (CKD-EPI)NonAf >90 (>60 ml/min/1.73 sqM) Glucose 87 (74-99) mg/dL Calcium 8.5 (8.4-10.2) mg/dL Total Bilirubin 1.0 (0.2-1.3) mg/dL AST 46 (17-59) U/L ALT 44 (4-49) U/L Alkaline Phosphatase 51 (38-126) U/L Troponin I (0.000-0.034) ng/mL Total Protein 8.1 (6.3-8.2) g/dL Albumin 4.6 (3.5-5.0) g/dL Urine Color Light Yellow Urine Appearance Cloudy (Clear) Urine pH 7.5 (5.0-8.0) Ur Specific [place] 1.001 (1.001-1.035) Urine Protein Negative (Negative) Urine Glucose (UA) Negative (Negative) Urine Ketones Negative (Negative) Urine Blood Negative (Negative) Urine Nitrite Negative (Negative) Urine Bilirubin Negative (Negative) Urine Urobilinogen <2.0 (<2.0) mg/dL Ur Leukocyte Esterase Negative (Negative) Urine RBC 1 (0-5) /hpf Amorphous Sediment Occasional H (None) /hpf 10/06/20 10/06/20 Range/Units 12:39 12:39 WBC (3.8-10.6) k/uL RBC (4.30-5.90) m/uL Hgb (13.0-17.5) gm/dL Hct (39.0-53.0) % MCV (80.0-100.0) fL MCH (25.0-35.0) pg MCHC (31.0-37.0) g/dL RDW (11.5-15.5) % Plt Count (150-450) k/uL MPV Neutrophils % % Lymphocytes % % Monocytes % % Eosinophils % % Basophils % % Neutrophils # (1.3-7.7) k/uL Lymphocytes # (1.0-4.8) k/uL Monocytes # (0-1.0) k/uL Eosinophils # (0-0.7) k/uL Basophils # (0-0.2) k/uL PT 10.9 (9.0-12.0) sec INR 1.0 (<1.2) APTT 21.8 L (22.0-30.0) sec Sodium (137-145) mmol/L Potassium (3.5-5.1) mmol/L Chloride (98-107) mmol/L Carbon Dioxide (22-30) mmol/L Anion Gap mmol/L BUN (9-20) mg/dL Creatinine (0.66-1.25) mg/dL Est GFR (CKD-EPI)AfAm (>60 ml/min/1.73 sqM) Est GFR (CKD-EPI)NonAf (>60 ml/min/1.73 sqM) Glucose (74-99) mg/dL Calcium (8.4-10.2) mg/dL Total Bilirubin (0.2-1.3) mg/dL AST (17-59) U/L ALT (4-49) U/L Alkaline Phosphatase (38-126) U/L Troponin I <0.012 (0.000-0.034) ng/mL Total Protein (6.3-8.2) g/dL Albumin (3.5-5.0) g/dL Urine Color Urine Appearance (Clear) Urine pH (5.0-8.0) Ur Specific [place] (1.001-1.035) Urine Protein (Negative) Urine Glucose (UA) (Negative) Urine Ketones (Negative) Urine Blood (Negative) Urine Nitrite (Negative) Urine Bilirubin (Negative) Urine Urobilinogen (<2.0) mg/dL Ur Leukocyte Esterase (Negative) Urine RBC (0-5) /hpf Amorphous Sediment (None) /hpf Disposition Clinical Impression: Dizziness Disposition: HOME SELF-CARE Condition: Good Instructions (If sedation given, give patient instructions): Dizziness (ED) Additional Instructions: Increase fluids. Rest. Follow up with the patient for recheck in 1-2 days. Return for any new, worsening, or concerning symptoms. Prescriptions: Meclizine [Antivert] 25 mg PO TID #15 tab Is patient prescribed a controlled substance at d/c from ED?: No Referrals: Payam Hernandez MD [Primary Care Provider] - 1-2 days Time of Disposition: 14:23
[2020-10-06 14:52] VITALS: BP 132/74; PULSE 98; RESP 16
== END 2020-10-06 14:56 | disposition home or self-care (01) ==
LOC: EC 11:05
DX: R42 Dizziness and giddiness (principal); E78.5 Hyperlipidemia, unspecified; I10 Essential (primary) hypertension; I25.10 Atherosclerotic heart disease of native coronary artery without angina pectoris; I25.2 Old myocardial infarction; Z79.82 Long term (current) use of aspirin
CPT/HCPCS: 36415; 80053; 81001; 84484; 85025; 85610; 85730; 93005; 96360; 99284

== ENCOUNTER → 2020-12-04 | Outpatient (CLI) | payer MEDICAID ==
[2020-12-04 11:54] LABS: African American GFR (CKD) 100.6 (60.0-200.0); Albumin 4.5 g/dL (3.80-4.90); Albumin/Globulin Ratio 1.8 (1.60-3.17); Anion Gap 7.1 mmol/L (4.00-12.00); BUN/Creat Ratio 16.67 Ratio (12.00-20.00); Calcium 8.8 mg/dL (8.7-10.3); Carbon Dioxide 29.9 mmol/L (21.6-31.8); Chol/HDL Ratio 3.68; Globulin 2.5 g/dL (1.6-3.3); LDL Cholesterol,Calculated 76.4 mg/dL (0.0-131.0); Non-African American GFR(CKD) 86.8 (60.0-200.0); Potassium 4.1 mmol/L (3.5-5.5); Total Bilirubin 0.6 mg/dL (0.3-1.2); VLDL Calculation 30.6 mg/dL (5.00-40.00)
== END | disposition home or self-care (01) ==
LOC: LABWHC1 07:18
PROVIDERS: ATTEND Internal Medicine Interventional Cardiology
DX: E78.2 Mixed hyperlipidemia (principal)
CPT/HCPCS: 36415; 80053; 80061

== ENCOUNTER → 2021-06-22 | Outpatient (CLI) | payer MEDICAID ==
[2021-06-22 16:24] LABS: ALT 37 U/L (10-49); AST 27 U/L (14-35); Chol/HDL Ratio 3.44 Ratio; LDL Cholesterol,Calculated 79.6 mg/dL (0.0-131.0)
== END | disposition home or self-care (01) ==
LOC: LABWHC1 08:41
PROVIDERS: ATTEND Internal Medicine Interventional Cardiology
DX: E78.2 Mixed hyperlipidemia (principal)
CPT/HCPCS: 36415; 80061; 84450; 84460

== ENCOUNTER → 2021-12-27 | Outpatient (CLI) | payer MEDICAID ==
[2021-12-27 11:23] LABS: ALT 45 U/L (10-49); AST 34 U/L (14-35); African American GFR (CKD) 99.9 (60.0-200.0); Albumin 4.6 g/dL (3.8-4.9); Albumin/Globulin Ratio 1.77 (1.60-3.17); Alkaline Phosphatase 68 U/L (41-126); BUN/Creat Ratio 18.33 Ratio (12.00-20.00); Blood Urea Nitrogen 16.5 mg/dL (9.0-27.0); Carbon Dioxide 24.5 mmol/L (20.0-27.5); Chloride 100 mmol/L (96-109); Chol/HDL Ratio 3.16 Ratio; Globulin 2.6 g/dL (1.6-3.3); Glucose 91 mg/dL (70-110); LDL Cholesterol,Calculated 67.7 mg/dL (0.0-131.0); Non-African American GFR(CKD) 86.2 (60.0-200.0); Potassium 4.6 mmol/L (3.5-5.5); Sodium 137 mmol/L (135-145); Total Protein 7.2 g/dL (6.2-8.2)
== END | disposition home or self-care (01) ==
LOC: LABWHC1 07:07
PROVIDERS: ATTEND Internal Medicine Interventional Cardiology
DX: E78.2 Mixed hyperlipidemia (principal)
CPT/HCPCS: 36415; 80053; 80061

== ENCOUNTER → 2022-09-05 | Outpatient (CLI) | payer MEDICAID ==
[2022-09-05 10:55] LABS: ALT 37 U/L (10-49); AST 31 U/L (14-35); Chol/HDL Ratio 3.33 Ratio; LDL Cholesterol,Calculated 87.1 mg/dL (0.0-131.0)
== END | disposition home or self-care (01) ==
LOC: LABWHC1 07:00
PROVIDERS: ATTEND Internal Medicine Interventional Cardiology
DX: E78.2 Mixed hyperlipidemia (principal)
CPT/HCPCS: 36415; 80061; 84450; 84460

== ENCOUNTER → 2022-11-23 | Outpatient (CLI) | payer MEDICAID ==
[2022-11-23 10:01] LABS: HCT 45.4 % (39.0-53.0); HGB 14.5 gm/dL (13.0-17.5); MCH 28.4 pg (25.0-35.0); MCHC 31.8 g/dL (31.0-37.0); MCV 89.4 fL (80.0-100.0); Platelet Count 198 k/uL (150-450); RBC 5.08 m/uL (4.30-5.90); RDW 13.3 % (11.5-15.5); WBC 6.9 k/uL (3.8-10.6)
[2022-11-24 09:27] LABS: ALT 36 U/L; AST 33 U/L; African American GFR (CKD) >90; Albumin 4.5 d/dL; Albumin/Globulin Ratio 1.73 Ratio; Alkaline Phosphatase 71 U/L; Blood Urea Nitrogen 9.9 mg/dL; Calcium 9.4 mg/dL; Carbon Dioxide 28.2 mmol/L; Chloride 102 mmol/L; Chol/HDL Ratio 2.42 Ratio; Globulin 2.6 d/dL; Glucose 86 mg/dL; LDL Cholesterol,Calculated 39.4 mg/dL; Potassium 5.1 mmol/L; Sodium 138 mmol/L; Total Bilirubin 0.5 mg/dL; Total Protein 7.1 d/dL
[2022-11-25 10:14] LABS: Non-African American GFR(CKD) 85.6
== END | disposition home or self-care (01) ==
LOC: LABWHC1 08:02
PROVIDERS: ATTEND Internal Medicine Interventional Cardiology
DX: I25.10 Atherosclerotic heart disease of native coronary artery without angina pectoris (principal); E78.2 Mixed hyperlipidemia
CPT/HCPCS: 36415; 80053; 80061; 85027

== ENCOUNTER → 2023-03-07 | Outpatient (CLI) | payer MEDICAID ==
[2023-03-07 11:03] LABS: ALT 37 U/L (10-49); AST 36 U/L (14-35); Chol/HDL Ratio 3.37 Ratio; LDL Cholesterol,Calculated 67.2 mg/dL (0.0-131.0)
== END | disposition home or self-care (01) ==
LOC: LABWHC1 06:50
PROVIDERS: ATTEND Internal Medicine Interventional Cardiology
DX: E78.2 Mixed hyperlipidemia (principal)
CPT/HCPCS: 36415; 80061; 84450; 84460

== ENCOUNTER → 2023-04-26 | Outpatient (CLI) | payer MEDICAID ==
[2023-04-26 14:25] LABS: Prostate Specific Antigen 1.24 ng/mL (0.000-6.500); T4, Free (Free Thyroxine) 1.03 ng/dL (0.80-1.80)
== END | disposition home or self-care (01) ==
LOC: LABWHC1 08:24
PROVIDERS: ATTEND Family Medicine
DX: Z12.5 Encounter for screening for malignant neoplasm of prostate (principal); I10 Essential (primary) hypertension
CPT/HCPCS: 36415; 84153; 84439; 84443

== ENCOUNTER → 2023-08-02 | Outpatient (CLI) | payer BC ==
[2023-08-02 13:50] LABS: ALT 41 U/L (10-49); AST 33 U/L (14-35); Albumin 4.5 g/dL (3.8-4.9); Albumin/Globulin Ratio 1.41 Ratio (1.60-3.17); Alkaline Phosphatase 76 U/L (41-126); BUN/Creat Ratio 12.33 Ratio (12.00-20.00); Blood Urea Nitrogen 11.1 mg/dL (9.0-27.0); Calcium 9.5 mg/dL (8.7-10.3); Carbon Dioxide 26.7 mmol/L (21.6-31.8); Chloride 100 mmol/L (96-109); Chol/HDL Ratio 3.49 Ratio; Globulin 3.2 g/dL (1.6-3.3); Glucose 90 mg/dL (70-110); Potassium 4.4 mmol/L (3.5-5.5); Sodium 138 mmol/L (135-145); Total Bilirubin 0.5 mg/dL (0.3-1.2); Total Protein 7.7 g/dL (6.2-8.2)
== END | disposition home or self-care (01) ==
LOC: LABWHC1 08:04
PROVIDERS: ATTEND Internal Medicine Interventional Cardiology
DX: E78.2 Mixed hyperlipidemia (principal)
CPT/HCPCS: 36415; 80053; 80061

== ENCOUNTER → 2024-02-27 | Outpatient (CLI) | payer BC ==
[2024-02-27 11:08] LABS: ALT 33 U/L (10-49); AST 31 U/L (14-35); Chol/HDL Ratio 3.36 Ratio; LDL Cholesterol,Calculated 89.3 mg/dL (0.0-131.0); VLDL Calculation 19.56 mg/dL (5.00-40.00)
== END | disposition home or self-care (01) ==
LOC: LABWHC1 07:04
PROVIDERS: ATTEND Internal Medicine Interventional Cardiology
DX: E78.2 Mixed hyperlipidemia (principal)
CPT/HCPCS: 36415; 80061; 84450; 84460

== ENCOUNTER → 2024-10-09 | Outpatient (CLI) | payer BC ==
[2024-10-09 12:59] LABS: ALT 41 U/L (10-49); AST 36 U/L (14-35); Albumin 4.3 g/dL (3.8-4.9); Albumin/Globulin Ratio 1.43 Ratio (1.60-3.17); Alkaline Phosphatase 75 U/L (41-126); Blood Urea Nitrogen 15.3 mg/dL (9.0-27.0); Calcium 8.8 mg/dL (8.7-10.3); Carbon Dioxide 24.7 mmol/L (21.6-31.8); Chloride 101 mmol/L (96-109); Glucose 91 mg/dL (70-110); LDL Cholesterol,Calculated 90.3 mg/dL (0.0-131.0); Potassium 4.5 mmol/L (3.5-5.5); Sodium 137 mmol/L (135-145); Total Bilirubin 0.6 mg/dL (0.3-1.2); Total Protein 7.3 g/dL (6.2-8.2)
== END | disposition home or self-care (01) ==
LOC: LABWHC1 07:02
PROVIDERS: ATTEND Internal Medicine Interventional Cardiology
DX: I10 Essential (primary) hypertension (principal); E78.2 Mixed hyperlipidemia
CPT/HCPCS: 36415; 80053; 80061